=== PATIENT | female | born 1955 | race Caucasian/White ===

== ENCOUNTER 2023-07-31 17:25 | Observation (INO) | payer MEDICARE, SELFPAY ==
[2023-07-31] VITALS (11 sets, daily range): BP systolic 136–176; BP diastolic 73–99; PULSE 62–86; RESP 16–18; TEMP 36.8–37; O2SAT 92–99; BMI 37.5
--- NOTE | 2023-07-31 17:29 | PC.NURSE ---
Dinner tray ordered for pt
--- NOTE | 2023-07-31 17:37 | PC.NURSE ---
Spoke with Julee at [facility] to have them fax pt most recent visit
[2023-07-31 17:57] LABS: Microscopic, Urine URINE MICROSCOPIC (MICROSCOPIC)
[2023-07-31 18:03] LABS: Basophils # 0.1 K/mm3 (0-0.2); Basophils % 1.2 % (0.1-2.0); Eosinophils # 0.3 K/mm3 (0.0-0.4); Eosinophils % 6.2 % (0.1-12.0); Hematocrit 35.2 % (37.0-47.0); Lymphocytes # 1.8 K/mm3 (0.7-4.5); Lymphocytes % 33.9 % (10-50); Mean Corpuscular Hemoglobin 30.9 pg (27.0-31.2); Mean Corpuscular Volume 90.8 fl (81-99); Mean Platelet Volume 8.6 fl (7.4-10.4); Monocytes # 0.3 K/mm3 (0.1-1.0); Monocytes % 5.3 % (1.7-9.3); Neutrophils # 2.9 K/mm3 (1.8-7.8); Neutrophils % 53.4 % (37.0-80.0); Platelet Count 178 K/mm3 (142-424); Red Blood Count 3.88 M/mm3 (4.20-5.40); Red Cell Distribution Width 14.7 % (11.5-17.5); White Blood Count 5.4 K/mm3 (4.8-10.8)
[2023-07-31 18:06] LABS: Alanine Aminotransferase 36 U/L (12-78); Albumin/Globulin Ratio 1.1 (1.1-1.8); Alkaline Phosphatase 86 U/L (38-126); Anion Gap 10.8 mEq/L (5-15); Aspartate Amino Transferase 63 U/L (14-36); Bilirubin,Total 0.4 mg/dl (0.2-1.3); Blood Urea Nitrogen 18 mg/dl (7-17); Carbon Dioxide 30 mmol/L (22.0-30.0); Chloride 104 mmol/L (98-107); Creatinine Clearance Estimated 91 mL/min (50-200); Estimated Glomerular Filt Rate 55 ml/min (>60); GFR (African American) 67 ML/MIN (>60); Globulin 3.5 g/dL (1.3-3.2); Glucose 92 mg/dl (74-100); Potassium 3.8 mmoL/L (3.5-5.1); Sodium 141 mmol/L (136-145); Total Protein,Serum 7.5 g/dl (6.3-8.2)
[2023-07-31 18:17] LABS: Appearance,Urine CLEAR (Clear); Bilirubin,Urine Negative (Negative); Blood, Urine 1+ (Negative); Color,Urine YELLOW (Yellow); Glucose,Urine (UA) Negative (Negative); Ketones,Urine Negative (Negative); Leukocyte Esterase,Urine TRACE (Negative); Nitrate,Urine POSITIVE (Negative); Protein,Urine TRACE (Negative); Specific Gravity, Urine 1.025 (1.005-1.030); Urobilinogen,Urine 0.2 EU/dl (0.2)
--- NOTE | 2023-07-31 18:34 | PC.NURSE ---
Dr. Peña at [facility] for pt eval
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
--- NOTE | 2023-07-31 18:47 | PC.NURSE ---
Spoke with Julee at [facility] regarding medical records advised The chart is almost 200 pages advised they will attempt to send it again
--- NOTE | 2023-07-31 18:50 | PC.NURSE ---
attempted to obtain case ID from [facility].
--- NOTE | 2023-07-31 18:52 | PC.NURSE ---
Pt provided with [employer] chips and drink
[2023-07-31 18:56] LABS: RBC,Urine Occasional #/hpf (0-3)
[2023-07-31 18:57] LABS: Bacteria,Urine 4+ /lpf; Renal Epithelial Cells,Urine Occasional #/lpf (0)
--- NOTE | 2023-07-31 19:15 | PC.NURSE ---
spoke with Kaitlyn in Case Mangement who gave the number for [facility]. per initial report by Devin Reddy APRN they had tried calling a home center in [place], [facility], [facility], [facility]. Will attempt to call [place] [phone].
--- NOTE | 2023-07-31 19:22 | PC.NURSE ---
Mirella at [place] [phone] contacted and speaking with the patient at this time.
--- NOTE | 2023-07-31 19:38 | PC.NURSE ---
I rounded on the pt, she is sleeping at this time.
--- NOTE | 2023-07-31 19:41 | PC.NURSE ---
Pt on phone with [facility], states they told her she was out of their district.
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
--- NOTE | 2023-07-31 20:27 | PC.NURSE ---
Pt states she could return to her living conditions but she has a hard time ambulating and no one to help care for her. Dr Peña would like us to assess he ambulating ability. Yue Leung to bedside to assist and noticed her right leg to be very red and swollen. Will address with Dr Peña before ambulating
--- NOTE | 2023-07-31 21:37 | PC.NURSE ---
Pt ambulated to restroom, provided new brief for incontinence
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
--- NOTE | 2023-07-31 22:13 | PC.NURSE ---
I called and spoke with the malt house operator, Rustam RN, to request a bed for admission to the hospitalist.
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
[2023-07-31] MEDS: ENOXAPARIN 120MG/0.8ML SYRINGE 110 MG SQ (22:46)
[2023-07-31] MEDS: CEFDINIR 300MG CAPSULE 300 MG PO (22:47)
--- NOTE | 2023-07-31 23:02 | PC.NURSE ---
Paola WEST to call back for report
--- NOTE | 2023-07-31 23:27 | PC.NURSE ---
PT ARRIVED AT THIS TIME
[2023-07-31] MEDS: 0.9 % SODIUM CHLORIDE 1000ML 1,000 ML 50 ML IV (23:47)
[2023-08-01] VITALS: BP 154/73; PULSE 71; RESP 18; TEMP 36.8; O2SAT 94; BMI 38.0
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
[2023-08-01 04:00] VITALS: BP 143/70; PULSE 71; RESP 18; TEMP 36.6; O2SAT 95; BMI 38.3
--- NOTE | 2023-08-01 07:24 | HMH.PHAINT1 ---
Pharmacy Intervention Comments: Home med list verified with patient at bedside and with external pharmacy list.
[2023-08-01 08:00] VITALS: BP 139/82; PULSE 71; RESP 18; TEMP 36.8; O2SAT 95
[2023-08-01] MEDS: CEFTRIAXONE 1 GM 1 GM in 0.9 % SODIUM CHLORIDE 50 ML IV (09:29)
[2023-08-01] MEDS: FUROSEMIDE 40MG/4ML VIAL 40 MG IV (09:29)
[2023-08-01] MEDS: PRAMIPEXOLE 1MG TAB 1.5 MG PO ×2 (09:30→12:38)
[2023-08-01] MEDS: LEVOTHYROXINE 150MCG (0.15MG)TAB 150 MCG PO (09:30)
[2023-08-01] MEDS: DIVALPROEX 250MG (EXTENDED-RELEASE) TABLET 500 MG PO (09:30)
[2023-08-01] MEDS: BACLOFEN 10MG TABLET 10 MG PO ×2 (09:30→12:38)
[2023-08-01] MEDS: SERTRALINE 100MG TABLET 100 MG PO (09:33)
[2023-08-01] MEDS: ENOXAPARIN 120MG/0.8ML SYRINGE 110 MG SQ (09:34)
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
--- NOTE | 2023-08-01 16:15 | CARE MANAGER ---
Addendum entered by Breanne Kaye RN 08/01/23 16:16: [facility] transportation and contacted them for a ride. Original Note: Patient is being discharged and will need transportation home. She has no relatives or friends that can assist. She also does not have any money. [facility]
--- NOTE | 2023-08-01 16:25 | PC.NURSE ---
Meds to beds called and iv removed.
--- NOTE | 2023-08-01 22:40 | CA_ITS ---
FINAL REPORT TECHNIQUE: extremity venous duplex was performed with augmentation and compression. CLINICAL HISTORY: Swollen leg, redness, obesity COMPARISON: None FINDINGS: RIGHT LOWER EXTREMITY VENOUS DOPPLER: Proper flow is seen throughout the deep venous system. The study is somewhat limited secondary to the large amount of edema and tenderness in the right leg. There is no evidence of deep venous thrombosis. IMPRESSION: No evidence of deep venous thrombosis. Study slightly limited secondary to large amount of soft tissue edema and tenderness in the right leg. Reviewed, Interpreted and Dictated by Fabricio Crawford MD Transcribed by Katie Read Authenticated and [facility]
--- NOTE | 2023-08-02 11:29 | CARE MANAGER ---
Attempted to contact patient related to discharge from hospital, but no phone number on file. BRETT Syed
== END 2023-08-01 18:00 | disposition home or self-care (01) ==
LOC: ER 18:38 → 2ND 22:25
PROVIDERS: Admitting Provider Internal Medicine Adolescent Medicine; Emergency Provider Emergency Medicine; PCP Family Medicine; Visit Provider Internal Medicine Adolescent Medicine
DX: N39.0 Urinary tract infection, site not specified (principal); Z59.19 Other inadequate housing; Z91.89 Other specified personal risk factors, not elsewhere classified; E03.8 Other specified hypothyroidism; F20.9 Schizophrenia, unspecified; M79.89 Other specified soft tissue disorders
CPT/HCPCS: 80053; 81001; 85025; 87086; 93971; 97163; 97165; 99285; G0378; J0696

== ENCOUNTER 2023-11-09 21:03 | Emergency (ER) | payer MEDICARE, SELFPAY ==
[2023-11-09 21:03] VITALS: BP 91/53; PULSE 78; RESP 16; TEMP 36.7; O2SAT 93; BMI 32.3
--- NOTE | 2023-11-09 21:10 | ECG_ITS ---
APPROVED REPORT Exam: Resting ECG HR:76 bpm ECG Measurements Heart Rate 76 AXES HI 158 P 67 QRSd 90 QRS 93 QT 418 T 76 QTc 449 Conclusion SINUS RHYTHM BORDERLINE RIGHT AXIS DEVIATION [QRS AXIS > 90] BORDERLINE ECG Electronically signed by : DIANNE COOLEY, 11/10/2023 06:07:39
[2023-11-09 21:20] LABS: Chloride 113 mmol/L (98-107); Sodium 144 mmol/L (136-145)
[2023-11-09 21:21] LABS: Potassium 4.1 mmoL/L (3.5-5.1)
[2023-11-09 21:23] LABS: Alanine Aminotransferase 36 U/L (12-78); Albumin Level 4.1 g/dl (3.5-5.0); Albumin/Globulin Ratio 1.1 (1.1-1.8); Alkaline Phosphatase 84 U/L (38-126); Anion Gap 10.1 mEq/L (5-15); Aspartate Amino Transferase 43 U/L (14-36); Bilirubin,Total 0.5 mg/dl (0.2-1.3); Blood Urea Nitrogen 30 mg/dl (7-17); Calcium 9.5 mg/dl (8.4-10.2); Carbon Dioxide 25 mmol/L (22.0-30.0); Creatinine Clearance Estimated 63 mL/min (50-200); Estimated Glomerular Filt Rate 45 ml/min (>60); GFR (African American) 54 ML/MIN (>60); Globulin 3.9 g/dL (1.3-3.2); Glucose 120 mg/dl (74-100)
--- NOTE | 2023-11-09 21:25 | XR_ITS ---
PROCEDURE INFORMATION: Exam: XR Right Knee Exam date and time: 11/09/2023 9:37 PM Age: 67 years old Clinical indication: Pain; Knee; Right; Additional info: Fall, right hip and knee pain TECHNIQUE: Imaging protocol: Radiologic exam of the right knee. Views: 3 views. COMPARISON: CR XR FEMUR RT 2V 11/09/2023 9:37 PM FINDINGS: Bones/joints: There is advanced tricompartmental osteoarthritis of the knee with loss of joint space, subchondral sclerosis, and productive changes. The osseous structures are intact, with no signs of acute fracture, dislocation, or malalignment. There is no evidence of abnormal bone density or destructive lesions. Soft tissues: The soft tissues appear within normal limits. IMPRESSION: At the time of imaging, the study shows no acute osseous abnormalities but does reveal signs of advanced tricompartmental osteoarthritis.
--- NOTE | 2023-11-09 21:25 | CT_ITS ---
PROCEDURE INFORMATION: Exam: CT Head Without Contrast Exam date and time: 11/09/2023 9:37 PM Age: 67 years old Clinical indication: Injury or trauma; Fall; Additional info: Fall, no loc TECHNIQUE: Imaging protocol: Computed tomography of the head without contrast. Radiation optimization: All CT scans at this facility use at least one of these dose optimization techniques: automated exposure control; mA and/or kV adjustment per patient size (includes targeted exams where dose is matched to clinical indication); or iterative reconstruction. COMPARISON: No relevant prior studies available. FINDINGS: Brain: No evidence for intracranial hemorrhage, mass lesions or acute stroke. Intracranial vascular calcifications. Cerebral ventricles: Ventricles and sulci appear normal. Pituitary gland and sella: Negative Paranasal sinuses: Visualized sinuses are unremarkable. No fluid levels. Mastoid air cells: Visualized mastoid air cells are well aerated. Orbital cavities: Bilateral cataract extractions. Parotid and submandibular glands: Negative Bones: Unremarkable. No acute fracture. Soft tissues: Unremarkable. Vasculature: Negative. IMPRESSION: 1. No evidence for intracranial hemorrhage, mass lesions or acute stroke. 2. Intracranial vascular calcifications. 3. Ventricles and sulci appear normal.
--- NOTE | 2023-11-09 21:25 | XR_ITS ---
PROCEDURE INFORMATION: Exam: XR Right Femur Exam date and time: 11/09/2023 9:37 PM Age: 67 years old Clinical indication: Pain; Thigh; Right; Additional info: All, right hip and knee pain TECHNIQUE: Imaging protocol: Radiologic exam of the right femur. Views: 2 views. COMPARISON: CR XR HIP RT 2-3V W/PELVIS 11/09/2023 9:37 PM FINDINGS: Bones/joints: Partially visualized advanced degenerative disease of the hip and knee. The osseous structures are intact, with no signs of acute fracture, dislocation, or malalignment. Age-related degenerative changes are observed. There is no evidence of abnormal bone density or destructive lesions. Soft tissues: The soft tissues appear within normal limits. IMPRESSION: At the time of imaging, the study shows no acute osseous abnormalities but does reveal signs of age-related degenerative changes.
--- NOTE | 2023-11-09 21:25 | CT_ITS ---
PROCEDURE INFORMATION: Exam: CT Cervical Spine Without Contrast Exam date and time: 11/09/2023 9:39 PM Age: 67 years old Clinical indication: Injury or trauma; Fall; Additional info: Fall, no loc TECHNIQUE: Imaging protocol: Computed tomography of the cervical spine without contrast. Radiation optimization: All CT scans at this facility use at least one of these dose optimization techniques: automated exposure control; mA and/or kV adjustment per patient size (includes targeted exams where dose is matched to clinical indication); or iterative reconstruction. COMPARISON: CT HEAD/BRAIN WO CON 11/09/2023 9:37 PM FINDINGS: Bones: Moderate dorsal kyphosis. No fracture or bone destruction. Proliferative changes around the dens the predental space narrowing consistent with arthritis. Extensive ventral osteophytic spurring at C4-C5, C5-C6, C6-C7 levels. Degenerative disc space narrowing at C4-C5 with posterior projecting disc osteophyte complex. [id number] multilevel facet arthropathy. Moderate right foraminal narrowing C4-C5 due to uncovertebral joint hypertrophy right parasagittal image 1002/53. Lungs: Lung apices are normal. Soft tissues: Unremarkable. IMPRESSION: 1. Moderate dorsal kyphosis. 2. No fracture or bone destruction. 3. Proliferative changes around the dens and predental space narrowing consistent with arthritis. 4. Extensive ventral osteophytic spurring at C4-C5, C5-C6, C6-C7 levels. 5. Degenerative disc space narrowing at C4-C5 with posterior projecting disc osteophyte complex. 6. [id number] multilevel facet arthropathy. 7. Moderate right foraminal narrowing C4-C5 due to uncovertebral joint hypertrophy right parasagittal image 1002/53.
--- NOTE | 2023-11-09 21:25 | XR_ITS ---
PROCEDURE INFORMATION: Exam: XR Right Humerus Exam date and time: 11/09/2023 9:37 PM Age: 67 years old Clinical indication: Pain; Upper arm; Right; Additional info: Fall, R shoudler and elbow pain TECHNIQUE: Imaging protocol: Radiologic exam of the right humerus. Views: 2 or more views. COMPARISON: CR XR SHOULDER RT MIN 2V 11/09/2023 9:37 PM FINDINGS: Bones/joints: The osseous structures are intact, with no signs of acute fracture, dislocation, or malalignment. Age-related degenerative changes are observed. There is no evidence of abnormal bone density or destructive lesions. Soft tissues: The soft tissues appear within normal limits. IMPRESSION: At the time of imaging, the study shows no acute osseous abnormalities but does reveal signs of age-related degenerative changes.
--- NOTE | 2023-11-09 21:25 | XR_ITS ---
PROCEDURE INFORMATION: Exam: XR Right Elbow Exam date and time: 11/09/2023 9:37 PM Age: 67 years old Clinical indication: Pain; Elbow; Right; Additional info: Fall, R elbow pain laterally TECHNIQUE: Imaging protocol: Radiologic exam of the right elbow. Views: 1 or 2 views. COMPARISON: CR XR FOREARM RT 2V 11/09/2023 9:37 PM FINDINGS: Bones/joints: There is small osseous fragmentation of the lateral humeral condyle which could be on the basis of degenerative disease or reflect a small avulsion injury. Soft tissues: Normal. IMPRESSION: There is small osseous fragmentation of the lateral humeral condyle which could be on the basis of degenerative disease or reflect a small avulsion injury.
--- NOTE | 2023-11-09 21:25 | XR_ITS ---
PROCEDURE INFORMATION: Exam: XR Right Shoulder Exam date and time: 11/09/2023 9:37 PM Age: 67 years old Clinical indication: Pain; Shoulder; Right; Additional info: Fall, R shoulder and elbow pain TECHNIQUE: Imaging protocol: Radiologic exam of the right shoulder. Views: 2 or more views. COMPARISON: CR XR HUMERUS RT 11/09/2023 9:37 PM FINDINGS: Bones/joints: The osseous structures are intact, with no signs of acute fracture, dislocation, or malalignment. Age-related degenerative changes are observed. There is no evidence of abnormal bone density or destructive lesions. Soft tissues: The soft tissues appear within normal limits. IMPRESSION: At the time of imaging, the study shows no acute osseous abnormalities but does reveal signs of age-related degenerative changes.
--- NOTE | 2023-11-09 21:25 | XR_ITS ---
PROCEDURE INFORMATION: Exam: XR Right Hip Exam date and time: 11/09/2023 9:37 PM Age: 67 years old Clinical indication: Hip pain; Right hip; Additional info: Fall, R hip and knee pain TECHNIQUE: Imaging protocol: Radiologic exam of the right hip. Views: 2 or 3 views hip with pelvis when performed. COMPARISON: CR XR FEMUR RT 2V 11/09/2023 9:37 PM FINDINGS: Bones/joints: There is mild osteoarthritis of the hips with joint space narrowing, productive changes, and subchondral sclerosis. There are partially visualized degenerative changes of the sacroiliac joints and lumbar spine as well as some degenerative disease of the pubic symphysis. The osseous structures are intact, with no signs of acute fracture, dislocation, or malalignment. Age-related degenerative changes are observed. There is no evidence of abnormal bone density or destructive lesions. Soft tissues: The soft tissues appear within normal limits. Other findings: The examination is limited by under penetration. IMPRESSION: At the time of imaging, the study shows no acute osseous abnormalities but does reveal signs of age-related degenerative changes.
--- NOTE | 2023-11-09 21:25 | XR_ITS ---
PROCEDURE INFORMATION: Exam: XR Right Forearm Exam date and time: 11/09/2023 9:37 PM Age: 67 years old Clinical indication: Pain; Lower or forearm; Right; Additional info: Fall, prox forearm pain TECHNIQUE: Imaging protocol: Radiologic exam of the right forearm. Views: 2 views. COMPARISON: CR XR ELBOW RT 2V 11/09/2023 9:37 PM FINDINGS: Bones/joints: The wrist and elbow are poorly evaluated due to positioning. No evidence for fracture of the mid radius or ulna. Soft tissues: Normal. IMPRESSION: 1. The wrist and elbow are poorly evaluated due to positioning. 2. No evidence for fracture of the mid radius or ulna.
[2023-11-09 21:27] LABS: Basophils # 0.1 K/mm3 (0-0.2); Basophils % 1.3 % (0.1-2.0); Eosinophils # 0.3 K/mm3 (0.0-0.4); Hematocrit 33.9 % (37.0-47.0); Hemoglobin 11.4 g/dL (12.2-16.2); Lymphocytes # 2.2 K/mm3 (0.7-4.5); Lymphocytes % 36.4 % (10-50); Mean Corpuscular HGB Conc 33.6 g/dL (31.8-35.4); Mean Corpuscular Hemoglobin 31.1 pg (27.0-31.2); Mean Corpuscular Volume 92.8 fl (81-99); Mean Platelet Volume 9.5 fl (7.4-10.4); Monocytes # 0.4 K/mm3 (0.1-1.0); Monocytes % 7.4 % (1.7-9.3); Neutrophils % 49.9 % (37.0-80.0); Platelet Count 230 K/mm3 (142-424); Red Blood Count 3.65 M/mm3 (4.20-5.40); Red Cell Distribution Width 15.5 % (11.5-17.5); White Blood Count 5.9 K/mm3 (4.8-10.8)
--- NOTE | 2023-11-09 21:33 | ED_ITS ---
Discharge Plan Disposition Patient Disposition: Home, Self-Care Chief Complaint: Fall Prescriptions Prescriptions: No Action atorvastatin 40 mg tablet 40 mg PO HS gabapentin 600 mg tablet 1,200 mg PO TID sertraline 100 mg tablet 100 mg PO DAILY baclofen 10 mg tablet 10 mg PO TID divalproex 500 mg Tablet Extended Release 24 Hr 500 mg PO HS levothyroxine 150 mcg tablet 150 mcg PO AM omeprazole 20 mg capsule,delayed release(DR/EC) 20 mg PO BID pramipexole [Mirapex] 1.5 mg Tablet 1.5 mg PO TID lidocaine 4 % Adhesive Patch,Medicated 1 patch TOPICAL DAILY olanzapine 10 mg tablet 10 mg PO BID Patient Comments: TAKE 1 TABLET BY MOUTH ONCE DAILY Referrals Follow up/Referrals: Provider,Referral, MD [Primary Care Provider] - See instructions Clinical Impressions Clinical Impression: Polypharmacy, Accident due to mechanical fall without injury, Arm pain, right, Acute pain of right lower extremity Discharge ED Provider: Bentley Bejarano General Adult HPI General Chief complaint: Fall Stated complaint: Fall Time Seen by Provider: 11/09/23 21:09 Mode of Arrival: EMS Source of Information: Patient Limitations: No Limitations Description of Symptoms (Recalled from ER Triage Doc. by RN): pt was an unwitnessed fall at [facility]. pt c/o rt elbow pain and weakness. History of Present Illness HPI narrative: Please note that above description of symptoms, in this electronic medical record under categorization of recalled from ER triage doctor by RN are reflective of an initial nursing assessment, however, is not reflective of my full history and physical exam that was personally taken and clarified. Consequentially, this preceding description of symptoms, which may include the patient's categorized chief complaint in the EMR, do not reflect my personal clinical impression, and the ultimate description of history of present illness and patient stated complaints should be deferred to this section of the note. Unless stated otherwise or congruent with this section of the note, additional signs, symptoms, or incongruence should be interpreted as inaccurate with my clinical impression. Related Data Home Medications Medication Instructions Recorded Confirmed atorvastatin 40 mg tablet 40 mg PO HS 08/01/23 11/09/23 baclofen 10 mg tablet 10 mg PO TID 08/01/23 11/09/23 divalproex 500 mg tablet,extended 500 mg PO HS 08/01/23 11/09/23 release 24 hr gabapentin 600 mg tablet 1,200 mg PO TID 08/01/23 11/09/23 levothyroxine 150 mcg tablet 150 mcg PO AM 08/01/23 11/09/23 omeprazole 20 mg capsule,delayed 20 mg PO BID 08/01/23 11/09/23 release pramipexole 1.5 mg tablet (Mirapex) 1.5 mg PO TID 08/01/23 11/09/23 sertraline 100 mg tablet 100 mg PO DAILY 08/01/23 11/09/23 lidocaine 4 % topical patch 1 patch topical DAILY 11/09/23 11/09/23 olanzapine 10 mg tablet 10 mg PO BID 11/09/23 11/09/23 Allergies Allergy/AdvReac Type Severity Reaction Status Date / Time haloperidol [From Haldol] Allergy Verified 07/31/23 17:39 quetiapine [From Seroquel] Allergy Verified 07/31/23 17:39 [facility] Disclaimer: The information contained in this section may have been updated after the patient was seen, as this information can be updated by other users. Social History (Updated 08/01/23 @ 00:16 by Linda Yarbrough RN) Smoking Status: Never smoker alcohol intake: never current occupational status: disabled and other Travel in the last 8 weeks: None ROS Obtained: Yes All systems reviewed & no additional complaints except as documented Physical Exam General General appearance: alert and in no apparent distress Head Head exam: atraumatic and normocephalic Eye Eye exam: Present normal appearance, PERRL and EOMI ENT ENT exam: Present mucous membranes moist Neck Neck exam: Present normal inspection, full ROM and trachea midline Respiratory Respiratory exam: Absent respiratory distress, wheezes, stridor, accessory muscle use or prolonged expiratory phase Cardiovascular Cardiovascular exam: Present normal rhythm Abdominal Exam Abdominal exam: Present soft; Absent distention, tenderness, guarding, rebound or rigidity Extremities Exam Extremities exam: Absent edema Neurological Exam Neurological exam: Present alert, oriented X3, CN II-XII intact and normal gait; Absent motor sensory deficit Skin Skin exam: Present warm and dry; Absent diaphoresis or erythema Medical Decision Making Medical Records Medical records reviewed: Yes I reviewed the patient's medical records. [place] Inquiry Pt receiving controlled substance: No [place] was queried for this patient: No Vital Signs: 11/09/23 21:03 11/09/23 22:00 11/09/23 22:30 Temperature 98.0 F Temperature Source Oral Pulse Rate 67 73 Pulse Rate [Right] 78 Respiratory Rate 16 16 15 Blood Pressure 105/40 L 97/61 L Blood Pressure [Right Arm] 91/53 L Blood Pressure Mean [Right Arm] 65 02 Sat by Pulse Oximetry 93 L 93 L 92 L Oxygen Delivery Method Room Air Room Air Lab Data Lab Results 11/09/23 21:05: WBC 5.9, RBC 3.65 L, Hgb 11.4 L, Hct 33.9 L, MCV 92.8, MCH 31.1, MCHC 33.6, RDW 15.5, Plt Count 230, MPV 9.5, Neut % (Auto) 49.9, Lymph % (Auto) 36.4, [place] % (Auto) 7.4, Eos % (Auto) 5.0, Baso % (Auto) 1.3, Neut # (Auto) 3.0, Lymph # (Auto) 2.2, [place] # (Auto) 0.4, Eos # (Auto) 0.3, Baso # (Auto) 0.1, Sodium 144, Potassium 4.1, Chloride 113 H, Carbon Dioxide 25, Anion Gap 10.1, B UN 30 H, Creatinine 1.20 H, Estimated Creat Clear 63, Estimated GFR 45 L, Est GFR ( Amer) 54 L, Glucose 120 H, Calcium 9.5, Total Bilirubin 0.5, AST 43 H, ALT 36, Alkaline Phosphatase 84, Troponin I < 0.01, NT-Pro-B Natriuret Pep 89.0, Total Protein 8.0, Albumin 4.1, Globulin 3.9 H, Albumin/Globulin Ratio 1.1 11/09/23 21:05 11/09/23 21:05 Orders (Tests/Meds): ED MEDICATIONS Discontinued Medications Generic Name Dose Route Start Last Admin Trade Name Freq PRN Reason Stop Dose Admin Lactated Ringer's 1,000 mls @ 999 mls/hr 11/09/23 21:28 11/09/23 21:58 Lactated Ringer's 1000 Ml Bag IV 11/09/23 22:28 999 mls/hr .[id number] ONE Administration ORDERS Category Date Time Status CT cervical spine wo con Stat Cat Scan 11/09/23 21:[address] head/brain wo con Stat Cat Scan 11/09/23 21:25 Taken Elbow XR right 2 views [XR elbow RT 2V] Stat Exams 11/09/23 21:25 Completed Femur XR right 2 views [XR femur RT 2V] Stat Exams 11/09/23 21:25 Completed Forearm XR right 2 views [XR forearm RT 2V] Stat Exams 11/09/23 21:25 Completed Hip XR right minimum 2 views [XR hip RT 2-3V w/pelvis] Exams 11/09/23 21:25 Completed Stat Humerus XR right [XR humerus RT] Stat Exams 11/09/23 21:25 Completed Knee XR right 3 views [XR knee RT 3V] Stat Exams 11/09/23 21:25 Completed Shoulder XR right miminum 2 views [XR shoulder RT min Exams 11/09/23 21:25 Completed 2V] Stat CBC w/Auto Diff [Complete Blood Count Auto Diff] Stat Lab 11/09/23 21:05 Completed CMP [Comprehensive Metabolic Panel] Stat Lab 11/09/23 21:05 Completed NT Pro Brain Natriuretic Pep. Stat Lab 11/09/23 21:05 Completed Trop I [Troponin I] Stat Lab 11/09/23 21:05 Completed Troponin I Q3H Lab 11/10/23 00:15 Ordered Troponin I Q3H Lab 11/10/23 03:15 Ordered UA [Urinalysis and Microscopic] Stat Lab 11/09/23 21:11 Ordered UDS [Drug Screen,Urine] Stat Lab 11/09/23 21:11 Ordered Medical Decision Narrative: 67-year-old female history of multiple sclerosis, hyper, hyperlipidemia, schizophrenia, schizoaffective disorder presenting with fall. Patient states that she was transferring from her bed into her wheelchair when she fell onto her right side. Struck her head, no loss of consciousness. Having pain right shoulder through elbow, right hip with her knee. No shortness of breath, chest pain, shortness of breath. No head or neck pain, no neurologic deficits. History was obtained via conversation with patient and EMS. On arrival, patient hemodynamically stable, alert, oriented x4, appropriate, GCS 14 (patient tired appearing, opening eyes to voice and conversing normally), moving all extremities spontaneously, pupils equal and reactive to light. Full physical exam performed and significant for well-appearing chronically ill woman in no acute distress. Dry mucous membranes. Pupils are 3 mm and reactive bilaterally. EOMs are intact, NIHSS 0. No trauma to the head or neck. No chest tenderness. Patient does have tenderness right upper extremity at shoulder, distal humerus near elbow, and elbow. Neurovascularly intact and range of motion intact. Patient also has tenderness lateral aspect of right hip and anterior right knee associated skin abrasion. No obvious deformity also neurologically intact. Differential includes intracranial bleed, cervical spine injury, fracture, sprain, strain, mechanical fall, metabolic abnormality, polypharmacy, among others. Patient was given fluid bolus for symptomatic management and correction of underlying abnormalities. Workup independently interpreted and demonstrated nonactionable hematologic workup including CBC, cardiac labs.chemistry with mild dehydration, she was given a liter fluids for this. CT head and cervical spine independently interpreted and without acute intracranial abnormality or cervical spine injury. Patient's right upper and right lower extremities were imaged, no evidence of acute bony abnormality. See radiology read for full review of final results. Independent interpretation of EKG shows sinus rhythm 76 beats a minute no ST or T wave changes concerning for acute ischemia. NH, QRS, QT intervals within normal limits. Borderline right axis deviation, but otherwise no abnormalities. Heart score not applicable here due to mechanical fall. After fluids, patient's blood pressure improved, remains asymptomatic. Given patient presentation, workup, history, this most likely represents mechanical fall in the setting of polypharmacy. Because patient at baseline without signs or symptoms of clinical decompensation, deemed appropriate for discharge. Results were relayed to patient who voiced understanding and were agreeable to outpatient management and follow up. I discussed my clinical impression with patient and answered all questions. At this time, the evidence for any other entities in the differential is insufficient to warrant any further testing or ED observation. This was explained as well. Advisory was given that persistent or worsening symptoms require further evaluation. I confirmed the understanding of this discussion. Critical Care Critical Care Time Critical Care Time: No
[2023-11-09 21:37] LABS: Troponin I < 0.01 ng/ml (0.00-0.034)
[2023-11-09] MEDS: LACTATED RINGERS 1000ML 1,000 ML 999 ML IV (21:58)
[2023-11-09 22:00] VITALS: BP 105/40; PULSE 67; RESP 16; O2SAT 93
[2023-11-09 22:30] VITALS: BP 97/61; PULSE 73; RESP 15; O2SAT 92
[2023-11-09 23:05] VITALS: BP 107/81; PULSE 73; RESP 16; TEMP 36.7; O2SAT 94
== END 2023-11-09 23:05 | disposition home or self-care (01) ==
PROVIDERS: Emergency Provider Emergency Medicine
DX: M79.601 Pain in right arm (principal); M79.604 Pain in right leg; Z79.899 Other long term (current) drug therapy; W06.XXXA Fall from bed, initial encounter; F20.9 Schizophrenia, unspecified
CPT/HCPCS: 70450; 72125; 73030; 73060; 73070; 73090; 73502; 73552; 73562; 80053; 83880; 84484; 85025; 93005; 96360; 99285

== ENCOUNTER 2023-11-23 13:43 | Emergency (ER) | payer MEDICARE, SELFPAY ==
[2023-11-23 13:42] VITALS: BP 125/84; PULSE 70; RESP 17; TEMP 36.7; O2SAT 98; BMI 34.4
--- NOTE | 2023-11-23 14:02 | HMH.EDGENADL ---
Discharge Plan Disposition Patient Disposition: Home, Self-Care Condition: Fair Prescriptions Prescriptions: No Action atorvastatin 40 mg tablet 40 mg PO HS gabapentin 600 mg tablet 1,200 mg PO TID sertraline 100 mg tablet 100 mg PO DAILY baclofen 10 mg tablet 10 mg PO TID divalproex 500 mg Tablet Extended Release 24 Hr 500 mg PO HS levothyroxine 150 mcg tablet 150 mcg PO AM omeprazole 20 mg capsule,delayed release(DR/EC) 20 mg PO BID pramipexole [Mirapex] 1.5 mg Tablet 1.5 mg PO TID lidocaine 4 % Adhesive Patch,Medicated 1 patch TOPICAL DAILY olanzapine 10 mg tablet 10 mg PO BID Patient Comments: TAKE 1 TABLET BY MOUTH ONCE DAILY Referrals Follow up/Referrals: Rashaad Lozada MD [Staff Physician] - See instructions Provider,MD Sofi [Primary Care Provider] - See instructions Activity Restrictions/Add. Instructions Additional Instructions/Restrictions: I have referred you to cardiology and please call and make an appointment tomorrow. Follow-up with your PCP as needed. Clinical Impressions Clinical Impression: Cellulitis of both lower extremities, Lymphedema Discharge ED Provider: Bentley Bejarano General Adult HPI <SILVIA Rincon - Last Filed: 11/23/23 15:51> General Chief complaint: Extremity Problem,Nontraumatic Stated complaint: Edema Extremity Time Seen by Provider: 11/23/23 13:59 Mode of Arrival: EMS Source of Information: Patient and EMS Limitations: No Limitations Description of Symptoms (Recalled from ER Triage Doc. by RN): r leg swelling. History of Present Illness HPI narrative: Patient presents for evaluation of bilateral lower extremity swelling, right greater than left, and right lower extremity pain and redness. Patient reports that she was recently hospitalized for bilateral lower extremity edema at [facility] in [place] however patient is a poor historian and cannot give me details such as date and time or month that she was admitted but she states it was this year. Patient denies trauma chest pain shortness of breath fever chills hemoptysis hematochezia melena nausea vomit diarrhea. Related Data Home Medications Medication Instructions Recorded Confirmed atorvastatin 40 mg tablet 40 mg PO HS 08/01/23 11/09/23 baclofen 10 mg tablet 10 mg PO TID 08/01/23 11/09/23 divalproex 500 mg tablet,extended 500 mg PO HS 08/01/23 11/09/23 release 24 hr gabapentin 600 mg tablet 1,200 mg PO TID 08/01/23 11/09/23 levothyroxine 150 mcg tablet 150 mcg PO AM 08/01/23 11/09/23 omeprazole 20 mg capsule,delayed 20 mg PO BID 08/01/23 11/09/23 release pramipexole 1.5 mg tablet (Mirapex) 1.5 mg PO TID 08/01/23 11/09/23 sertraline 100 mg tablet 100 mg PO DAILY 08/01/23 11/09/23 lidocaine 4 % topical patch 1 patch topical DAILY 11/09/23 11/09/23 olanzapine 10 mg tablet 10 mg PO BID 11/09/23 11/09/23 Allergies Allergy/AdvReac Type Severity Reaction Status Date / Time haloperidol [From Haldol] Allergy Verified 07/31/23 17:39 quetiapine [From Seroquel] Allergy Verified 07/31/23 17:39 [facility] <SILVIA Rincon - Last Filed: 11/23/23 15:51> [facility] Disclaimer: The information contained in this section may have been updated after the patient was seen, as this information can be updated by other users. Social History (Updated 08/01/23 @ 00:16 by Linda Yarbrough RN) Smoking Status: Never smoker alcohol intake: never current occupational status: disabled and other Travel in the last 8 weeks: None <SILVIA Rincon - Last Filed: 11/23/23 15:51> ROS Obtained: Yes Systems reviewed as appropriate & no additional complaints except as documented Physical Exam <SILVIA Rincon Last Filed: 11/23/23 15:51> General General appearance: alert and in no apparent distress Respiratory Respiratory exam: Present normal lung sounds bilaterally; Absent respiratory distress Cardiovascular Cardiovascular exam: Present regular rate, normal rhythm and normal heart sounds Abdominal Exam Abdominal exam: Present soft (Central obesity) and normal bowel sounds; Absent tenderness, guarding, rebound or rigidity Extremities Exam Extremities exam: Present normal inspection (Bilateral upper extremities), full ROM, tenderness (Bilateral lower extremities, right greater than left), edema (Bilateral 3+ pitting edema however right lower extremity is larger than left) and calf tenderness (Right lower extremity only) Back Exam Back exam: Present normal inspection and full ROM Neurological Exam Neurological exam: Present alert, oriented X3 and CN II-XII intact Psychiatric Psychiatric exam: Present normal affect and normal mood Skin Skin exam: Present warm and dry; Absent normal color Other Other exam information: Patient has erythema over the right lower extremity from the junction of the proximal and middle thirds to the ankle including the foot and to a lesser extent has erythema of the anterior portion of the left lower extremity from the junction of the middle and distal thirds but anteriorly only. The right lower extremity erythema is circumferential. She is neurovascular intact distally and both bilateral extremities. Medical Decision Making <SILVIA Rincon - Last Filed: 11/23/23 15:51> Medical Records Medical records reviewed: Yes I reviewed the patient's medical records. Chucho Inquiry Pt receiving controlled substance: No Vital Signs: 11/23/23 13:42 11/23/23 14:30 11/23/23 16:06 Temperature 98.1 F 98.4 F Temperature Source Oral Oral Pulse Rate 65 65 Pulse Rate [Right] 70 Respiratory Rate 17 18 Blood Pressure 137/88 137/88 Blood Pressure [Right Arm] 125/84 Blood Pressure Mean 101 Blood Pressure Mean [Right Arm] 97 Blood Pressure Source [Right Arm] Automatic Cuff 02 Sat by Pulse Oximetry 98 97 Oxygen Delivery Method Room Air Room Air Room Air Lab Data Lab results reviewed: Yes I reviewed the patient's lab results. Lab Results 11/23/23 14:45: WBC 4.8, RBC 3.95 L, Hgb 11.9 L, Hct 36.5 L, MCV 92.4, MCH 30.1, MCHC 32.6, RDW 15.1, Plt Count 165, MPV 9.0, Neut % (Auto) 52.0, Lymph % (Auto) 36.9, [place] % (Auto) 6.4, Eos % (Auto) 3.7, Baso % (Auto) 1.0, Neut # (Auto) 2.5, Lymph # (Auto) 1.8, [place] # (Auto) 0.3, Eos # (Auto) 0.2, Baso # (Auto) 0.1, ESR 50 H, PT 10.8, INR 1.00, D-Dimer 0.30, Sodium 142, Potassium 4.2, Chloride 107, Carbon Dioxide 29, Anion Gap 10.2, BUN 21 H, Creatinine 1.10 H, Estimated Creat Clear 76, Estimated GFR 49 L, Est GFR ( Amer) 60, Glucose 93, Calcium 9.7, Total Bilirubin 0.2, AST 38 H, ALT 28, Alkaline Phosphatase 89, C-Reactive Protein 1.7, NT-Pro-B Natriuret Pep 53.5, Total Protein 7.6, Albumin 3.9, Globulin 3.7 H, Albumin/Globulin Ratio 1.1, Procalcitonin 0.032 11/23/23 14:45 11/23/23 14:45 Orders (Tests/Meds): ED MEDICATIONS Discontinued Medications Generic Name Dose Route Start Last Admin Trade Name Freq PRN Reason Stop Dose Admin Acetaminophen 1,000 mg 11/23/23 14:08 11/23/23 14:57 Acetaminophen 1,000mg/100ml Vial IV 11/23/23 14:09 1,000 mg ONCE ONE Administration Dalbavancin 1,500 mg/ Dextrose 250 mls @ 500 mls/hr 11/23/23 14:45 11/23/23 15:25 IV 11/23/23 14:46 500 mls/hr ONCE ONE Administration Ketorolac Tromethamine 15 mg 11/23/23 14:08 11/23/23 14:57 Ketorolac 30mg/Ml Vial IV 11/23/23 14:09 15 mg ONCE ONE Administration ORDERS Category Date Time Status BNP [NT Pro Brain Natriuretic Pep.] Stat Lab 11/23/23 14:45 Completed CRP [C-Reactive Protein] Stat Lab 11/23/23 14:45 Completed Complete Blood Count Auto Diff Stat Lab 11/23/23 14:45 Completed Comprehensive Metabolic Panel Routine Lab 11/23/23 14:45 Completed D-Dimer Stat Lab 11/23/23 14:45 Completed ESR [Erythrocyte Sedimentation Rate] Stat Lab 11/23/23 14:45 Completed Procalcitonin Stat Lab 11/23/23 14:45 Completed Prothrombin Time INR Stat Lab 11/23/23 14:45 Completed CA venous doppler LE BI Routine Y 11/23/23 14:08 Completed Medical Decision Narrative: In summary patient is a 67-year-old female who presents to the emergency department for evaluation of edema pain and swelling of the bilateral lower extremities, right greater than left. Patient has past medical history of multiple sclerosis, hyperlipidemia, schizophrenia, schizoaffective disorder morbid obesity hypothyroidism and history of substance abuse. [facility] Patient is hemodynamically stable upon arrival, afebrile. Physical exam is remarkable for bilateral 3+ pitting edema of the lower extremities, right greater than left with bilateral lower extremity erythema again right greater than left. Patient is tender to palpation posteriorly in the right lower extremity but not in the left. Differential diagnosis includes cellulitis versus DVT versus abscess etc. Initial workup will be conducted with hematologic labs venous Doppler. Initial interventions include Toradol and Tylenol. Initial workup reviewed by me shows that her hematologic labs are nonactionable including a negative D-dimer screen normal white count no shift. Ultrasound shows no thrombus but does show soft tissue cellulitis. Upon repeat evaluation patient had acceptable resolution of symptoms. Given this patient given Dalvance prior to discharge. Given that we have no cardiovascular evaluation will refer to cardiology for review as an outpatient. <Bentley Bejarano MD - Last Filed: 11/25/23 07:16> Vital Signs: 11/23/23 13:42 11/23/23 14:30 11/23/23 16:06 Temperature 98.1 F 98.4 F Temperature Source Oral Oral Pulse Rate 65 65 Pulse Rate [Right] 70 Respiratory Rate 17 18 Blood Pressure 137/88 137/88 Blood Pressure [Right Arm] 125/84 Blood Pressure Mean 101 Blood Pressure Mean [Right Arm] 97 Blood Pressure Source [Right Arm] Automatic Cuff 02 Sat by Pulse Oximetry 98 97 Oxygen Delivery Method Room Air Room Air Room Air Lab Data Lab Results 11/23/23 14:45: WBC 4.8, RBC 3.95 L, Hgb 11.9 L, Hct 36.5 L, MCV 92.4, MCH 30.1, MCHC 32.6, RDW 15.1, Plt Count 165, MPV 9.0, Neut % (Auto) 52.0, Lymph % (Auto) 36.9, [place] % (Auto) 6.4, Eos % (Auto) 3.7, Baso % (Auto) 1.0, Neut # (Auto) 2.5, Lymph # (Auto) 1.8, [place] # (Auto) 0.3, Eos # (Auto) 0.2, Baso # (Auto) 0.1, ESR 50 H, PT 10.8, INR 1.00, D-Dimer 0.30, Sodium 142, Potassium 4.2, Chloride 107, Carbon Dioxide 29, Anion Gap 10.2, BUN 21 H, Creatinine 1.10 H, Estimated Creat Clear 76, Estimated GFR 49 L, Est GFR ( Amer) 60, Glucose 93, Calcium 9.7, Total Bilirubin 0.2, AST 38 H, ALT 28, Alkaline Phosphatase 89, C-Reactive Protein 1.7, NT-Pro-B Natriuret Pep 53.5, Total Protein 7.6, Albumin 3.9, Globulin 3.7 H, Albumin/Globulin Ratio 1.1, Procalcitonin 0.032 Orders (Tests/Meds): ED MEDICATIONS Discontinued Medications Generic Name Dose Route Start Last Admin Trade Name Freq PRN Reason Stop Dose Admin Acetaminophen 1,000 mg 11/23/23 14:08 11/23/23 14:57 Acetaminophen 1,000mg/100ml Vial IV 11/23/23 14:09 1,000 mg ONCE ONE Administration Dalbavancin 1,500 mg/ Dextrose 250 mls @ 500 mls/hr 11/23/23 14:45 11/23/23 15:25 IV 11/23/23 14:46 500 mls/hr ONCE ONE Administration Ketorolac Tromethamine 15 mg 11/23/23 14:08 11/23/23 14:57 Ketorolac 30mg/Ml Vial IV 11/23/23 14:09 15 mg ONCE ONE Administration ORDERS Category Date Time Status BNP [NT Pro Brain Natriuretic Pep.] Stat Lab 11/23/23 14:45 Completed CRP [C-Reactive Protein] Stat Lab 11/23/23 14:45 Completed Complete Blood Count Auto Diff Stat Lab 11/23/23 14:45 Completed Comprehensive Metabolic Panel Routine Lab 11/23/23 14:45 Completed D-Dimer Stat Lab 11/23/23 14:45 Completed ESR [Erythrocyte Sedimentation Rate] Stat Lab 11/23/23 14:45 Completed Procalcitonin Stat Lab 11/23/23 14:45 Completed Prothrombin Time INR Stat Lab 11/23/23 14:45 Completed CA venous doppler LE BI Routine Y 11/23/23 14:08 Completed Medical Decision Narrative: In summary patient is a 67-year-old female who presents to the emergency department for evaluation of edema pain and swelling of the bilateral lower extremities, right greater than left. Patient has past medical history of multiple sclerosis, hyperlipidemia, schizophrenia, schizoaffective disorder morbid obesity hypothyroidism and history of substance abuse. Patient currently is a resident [facility]. Patient is hemodynamically stable upon arrival, afebrile. Physical exam is remarkable for bilateral 3+ pitting edema of the lower extremities, right greater than left with bilateral lower extremity erythema again right greater than left. Patient is tender to palpation posteriorly in the right lower extremity but not in the left. Differential diagnosis includes cellulitis versus DVT versus abscess etc. Initial workup will be conducted with hematologic labs venous Doppler. Initial interventions include Toradol and Tylenol. Initial workup reviewed by me shows that her hematologic labs are nonactionable including a negative D-dimer screen normal white count no shift. Ultrasound shows no thrombus but does show soft tissue cellulitis. Upon repeat evaluation patient had acceptable resolution of symptoms. Given this patient given Dalvance prior to discharge. Given that we have no cardiovascular evaluation will refer to cardiology for review as an outpatient. I was consulted by the CRISTO, and we discussed the complexity of the problems being addressed. I approved the treatment and management plan for this patient?s care in the Emergency Department, thus performing a substantive portion of the medical decision making. Bentley Bejarano MD Critical Care <SILVIA Rincon - Last Filed: 11/23/23 15:51> Critical Care Time Critical Care Time: No
--- NOTE | 2023-11-23 14:08 | CA_ITS ---
FINAL REPORT CLINICAL HISTORY: edema, cellulitis, pain, Obesity, FINDINGS: Color Doppler, duplex Doppler and compression sonography of the bilateral lower extremities was performed. There is no evidence of deep venous thrombosis from the level of the groin to the calf. The deep veins are patent and compressible. There is a small right popliteal cyst. IMPRESSION: No evidence of deep venous thrombosis bilateral lower extremities. Reviewed, Interpreted and Dictated by Gagan Roldan III, MD Transcribed by Kay Harris Authenticated and [facility]
--- NOTE | 2023-11-23 14:17 | PC.NURSE ---
notified CV lab that pt has a dvt r/o ordered
[2023-11-23 14:30] VITALS: BP 137/88; PULSE 65; O2SAT 97
--- NOTE | 2023-11-23 14:40 | PC.NURSE ---
CV lab at bedside
[2023-11-23 14:56] LABS: Basophils # 0.1 K/mm3 (0-0.2); Eosinophils # 0.2 K/mm3 (0.0-0.4); Eosinophils % 3.7 % (0.1-12.0); Hematocrit 36.5 % (37.0-47.0); Hemoglobin 11.9 g/dL (12.2-16.2); Lymphocytes # 1.8 K/mm3 (0.7-4.5); Lymphocytes % 36.9 % (10-50); Mean Corpuscular HGB Conc 32.6 g/dL (31.8-35.4); Mean Corpuscular Hemoglobin 30.1 pg (27.0-31.2); Mean Corpuscular Volume 92.4 fl (81-99); Monocytes # 0.3 K/mm3 (0.1-1.0); Monocytes % 6.4 % (1.7-9.3); Neutrophils # 2.5 K/mm3 (1.8-7.8); Platelet Count 165 K/mm3 (142-424); Red Blood Count 3.95 M/mm3 (4.20-5.40); Red Cell Distribution Width 15.1 % (11.5-17.5); White Blood Count 4.8 K/mm3 (4.8-10.8)
[2023-11-23] MEDS: KETOROLAC 30MG/ML VIAL 15 MG IV (14:57)
[2023-11-23] MEDS: ACETAMINOPHEN 1,000MG/100ML VIAL 1000 MG IV (14:57)
[2023-11-23 15:03] LABS: Chloride 107 mmol/L (98-107); Sodium 142 mmol/L (136-145)
[2023-11-23 15:04] LABS: Potassium 4.2 mmoL/L (3.5-5.1); Prothrombin Time 10.8 seconds (10.1-12.5)
[2023-11-23 15:06] LABS: Alanine Aminotransferase 28 U/L (12-78); Albumin Level 3.9 g/dl (3.5-5.0); Albumin/Globulin Ratio 1.1 (1.1-1.8); Alkaline Phosphatase 89 U/L (38-126); Anion Gap 10.2 mEq/L (5-15); Aspartate Amino Transferase 38 U/L (14-36); Bilirubin,Total 0.2 mg/dl (0.2-1.3); Blood Urea Nitrogen 21 mg/dl (7-17); Carbon Dioxide 29 mmol/L (22.0-30.0); Creatinine Clearance Estimated 76 mL/min (50-200); Estimated Glomerular Filt Rate 49 ml/min (>60); GFR (African American) 60 ML/MIN (>60); Globulin 3.7 g/dL (1.3-3.2); Total Protein,Serum 7.6 g/dl (6.3-8.2)
[2023-11-23 15:07] LABS: Calcium 9.7 mg/dl (8.4-10.2); Glucose 93 mg/dl (74-100)
[2023-11-23 15:12] LABS: C-Reactive Protein 1.7 mg/L (0-4)
[2023-11-23 15:24] LABS: NT Pro Brain Natriuretic Pep. 53.5 pg/mL (0-125)
[2023-11-23] MEDS: DALBAVANCIN HCL 1,500 MG in DEXTROSE 5 % IN WATER 250 ML 500 MG IV (15:25)
[2023-11-23 15:28] LABS: Erythrocyte Sedimentation Rate 50 mm/hr (0-30)
[2023-11-23 15:31] LABS: Procalcitonin 0.032 ng/mL (0.0-2.0)
--- NOTE | 2023-11-23 15:32 | PC.NURSE ---
rounded on pt. expressed no needs at this time.
[2023-11-23 16:06] VITALS: BP 137/88; PULSE 65; RESP 18; TEMP 36.9; O2SAT 98
== END 2023-11-23 16:45 | disposition home or self-care (01) ==
PROVIDERS: Physician Assistant; Emergency Provider Emergency Medicine
DX: L03.115 Cellulitis of right lower limb (principal); L03.116 Cellulitis of left lower limb; I89.0 Lymphedema, not elsewhere classified; F20.9 Schizophrenia, unspecified
CPT/HCPCS: 80053; 83880; 84145; 85025; 85378; 85610; 85651; 86140; 93970; 96374; 96375; 99284; J0131; J0875

== ENCOUNTER 2024-01-21 21:18 | Emergency (ER) | payer MEDICARE, SELFPAY ==
[2024-01-21 21:18] VITALS: BP 139/76; PULSE 65; RESP 18; TEMP 36.8; O2SAT 97; BMI 36.3
[2024-01-21 21:31] VITALS: BP 138/73; PULSE 68; RESP 15; O2SAT 98
--- NOTE | 2024-01-21 21:46 | HMH.EDGENADL ---
Discharge Plan Disposition Patient Disposition: Home, Self-Care Chief Complaint: Extremity Injury, Lower Prescriptions Prescriptions: No Action atorvastatin 40 mg tablet 40 mg PO HS gabapentin 600 mg tablet 1,200 mg PO TID sertraline 100 mg tablet 100 mg PO DAILY baclofen 10 mg tablet 10 mg PO TID divalproex 500 mg Tablet Extended Release 24 Hr 500 mg PO HS levothyroxine 150 mcg tablet 150 mcg PO AM omeprazole 20 mg capsule,delayed release(DR/EC) 20 mg PO BID pramipexole [Mirapex] 1.5 mg Tablet 1.5 mg PO TID lidocaine 4 % Adhesive Patch,Medicated 1 patch TOPICAL DAILY olanzapine 10 mg tablet 10 mg PO BID Patient Comments: TAKE 1 TABLET BY MOUTH ONCE DAILY Referrals Follow up/Referrals: Katherine Suarez MD [Primary Care Provider] - See instructions Activity Restrictions/Add. Instructions Additional Instructions/Restrictions: At this time it was felt you are safe to be discharged home. If new or worsening symptoms please do not hesitate to return the emergency department. Please call and schedule an appointment with Dr. Lozada as soon as you are able to assess your heart function and how it may be contributing to your swelling. Please present tomorrow for formal ultrasound of your leg to rule out blood clot although I did not see one tonight, they should contact you to present for your appointment tomorrow. Please use pression stockings as discussed. Clinical Impressions Clinical Impression: Lymphedema, Leg swelling Discharge ED Provider: Miose Peña General Adult HPI General Chief complaint: Extremity Injury, Lower Stated complaint: Extremity swelling Time Seen by Provider: 01/21/24 21:20 Mode of Arrival: EMS Source of Information: Patient and EMS Limitations: No Limitations Description of Symptoms (Recalled from ER Triage Doc. by RN): Patient reports increased leg swelling that started approximately 3 days ago and has progressively worsened, especially in the right leg. Patient reports increased pain in the right leg. Patient states that she has had leg swelling in the past but that it usually resolves in her sleep. Patient denies shortness of breath, denies chest pain, reports no diuretic medication or CHF diagnosis. History of Present Illness HPI narrative: Patient is a 68-year-old female with past medical history of bilateral lower extremities lymphedema, schizophrenia, secondary hypothyroidism who presents emergency department for evaluation of leg swelling. Patient has had bilateral lower extremity swelling for many years, sometimes her right is worse than her left however both of them usually resolve with rest. She has a history of cirrhosis that she reports and is unsure of the etiology. Over the last 3 to 4 days her legs have swollen as they have before right greater than left which has also happened before. Due to persistent symptoms despite her compression stockings she presents here for continued evaluation. No trauma. No chest pain. Related Data Home Medications Medication Instructions Recorded Confirmed atorvastatin 40 mg tablet 40 mg PO HS 08/01/23 11/09/23 baclofen 10 mg tablet 10 mg PO TID 08/01/23 11/09/23 divalproex 500 mg tablet,extended 500 mg PO HS 08/01/23 11/09/23 release 24 hr gabapentin 600 mg tablet 1,200 mg PO TID 08/01/23 11/09/23 levothyroxine 150 mcg tablet 150 mcg PO AM 08/01/23 11/09/23 omeprazole 20 mg capsule,delayed 20 mg PO BID 08/01/23 11/09/23 release pramipexole 1.5 mg tablet (Mirapex) 1.5 mg PO TID 08/01/23 11/09/23 sertraline 100 mg tablet 100 mg PO DAILY 08/01/23 11/09/23 lidocaine 4 % topical patch 1 patch topical DAILY 11/09/23 11/09/23 olanzapine 10 mg tablet 10 mg PO BID 11/09/23 11/09/23 Allergies Allergy/AdvReac Type Severity Reaction Status Date / Time haloperidol [From Haldol] Allergy Verified 07/31/23 17:39 quetiapine [From Seroquel] Allergy Verified 07/31/23 17:39 [facility] Disclaimer: The information contained in this section may have been updated after the patient was seen, as this information can be updated by other users. Social History (Updated 08/01/23 @ 00:16 by Linda Yarbrough RN) Smoking Status: Current every day smoker alcohol intake: never current occupational status: disabled and other Travel in the last 8 weeks: None ROS Obtained: Yes Systems reviewed as appropriate & no additional complaints except as documented Physical Exam General General appearance: alert and in no apparent distress Head Head exam: atraumatic and normocephalic Eye Eye exam: Present PERRL ENT ENT exam: Present mucous membranes moist Neck Neck exam: Present normal inspection Chest Chest inspection: Present normal inspection and symmetric chest wall rise Respiratory Respiratory exam: Present normal lung sounds bilaterally; Absent respiratory distress Cardiovascular Cardiovascular exam: Present regular rate and normal rhythm Abdominal Exam Abdominal exam: Present soft; Absent tenderness Extremities Exam Extremities exam: Present other (Swollen bilateral lower extremities, the right is slightly worse than the left distal to the knee. Edema is pitting bilaterally. No asymmetric leg swelling proximal to the knee.) Neurological Exam Neurological exam: Present alert Psychiatric Psychiatric exam: Present normal affect Skin Skin exam: Present warm and dry Medical Decision Making Chucho Inquiry Pt receiving controlled substance: No Vital Signs: 01/21/24 21:18 Temperature 98.3 F Temperature Source Oral Pulse Rate [Left Radial] 65 Respiratory Rate 18 Blood Pressure [Right Arm] 139/76 Blood Pressure Mean [Right Arm] 97 Blood Pressure Source [Right Arm] Automatic Cuff Blood Pressure Position [Right Arm] Sitting 02 Sat by Pulse Oximetry 97 Oxygen Delivery Method Room Air Lab Data Lab Results 01/21/24 21:20: WBC 5.5, RBC 3.74 L, Hgb 11.4 L, Hct 34.1 L, MCV 91.3, MCH 30.4, MCHC 33.3, RDW 15.8, Plt Count 224, MPV 8.9, Neut % (Auto) 52.0, Lymph % (Auto) 35.2, [place] % (Auto) 7.8, Eos % (Auto) 3.6, Baso % (Auto) 1.4, Neut # (Auto) 2.8, Lymph # (Auto) 1.9, [place] # (Auto) 0.4, Eos # (Auto) 0.2, Baso # (Auto) 0.1, Sodium 145, Potassium 4.4, Chloride 112 H, Carbon Dioxide 29, Anion Gap 8.4, BUN 32 H, Creatinine 1.30 H, Estimated Creat Clear 65, Estimated GFR 40 L, Est GFR ( Amer) 49 L, Glucose 97, Calcium 9.5, Total Bilirubin 0.3, AST 40 H, ALT 31, Alkaline Phosphatase 75, NT-Pro-B Natriuret Pep 294 H, Total Protein 7.9, Albumin 4.1, Globulin 3.8 H, Albumin/Globulin Ratio 1.1 01/21/24 21:20 01/21/24 21:20 Orders (Tests/Meds): ORDERS Category Date Time Status POCUS Point of Care (ER Only) Stat Exams 01/21/24 21:45 Completed POCUS Point of Care (ER Only) Stat Exams 01/21/24 21:46 Completed BNP [NT Pro Brain Natriuretic Pep.] Stat Lab 01/21/24 21:20 Completed CBC w/Auto Diff [Complete Blood Count Auto Diff] Stat Lab 01/21/24 21:20 Completed CMP [Comprehensive Metabolic Panel] Stat Lab 01/21/24 21:20 Completed Medical Decision Narrative: In summary patient is a 68-year-old female with past medical history described above who presents emergency department for evaluation of bilateral lower extremity swelling. Patient is hemodynamically stable nontoxic-appearing upon arrival, afebrile. Given history of lymphedema I suspect this is an acute worsening of lymphedema given that she has had asymmetric swelling of her legs before and is better with rest this makes sense. However kidney failure, heart failure, worsening liver failure are on the differential as well as DVT for which hematologic labs will be obtained. DVT less likely given the cyclical nature of this. [id number] ultrasound will be performed at bedside for heart and leg. No initial interventions are indicated. Initial workup reviewed by me, hematologic labs are nonactionable, mildly elevated creatinine without TAWANA per rifle criteria, BNP is elevated although only 294. Fohlr-[id number] ultrasound at bedside shows no large pericardial effusion, ventricular function was difficult to assess due to habitus although patient is not in overt decompensated heart failure given her respiratory rate and saturating in the high 90s on room air. [id number] ultrasound also shows no evidence of proximal DVT. Given this the risks were felt to outweigh the benefits as far as anticoagulation empiric initiation was concerned and patient will follow-up in the morning for formal ultrasound. I suspect that her leg swelling is due to her lymphedema and patient is appropriate for outpatient management at this time. Procedure: [id number] ultrasound was performed by Moise Peña. Indication was leg swelling. Ultrasound was cardiac. Subxiphoid view was obtained with limited views which shows no large pericardial effusion, ventricular function cannot be assessed due to technical inadequacy of this ultrasound. Images were saved to permanent archive. Patient tolerated the procedure well. Procedure: [id number] ultrasound was performed with jeanette Peña. Indication was leg swelling. Ultrasound was DVT screening. Serial compression was performed of the common femoral vein of the right lower extremity which shows serial compressibility, no evidence of proximal DVT. Images were saved to apartment archive. Patient tolerated the procedure well. Critical Care Critical Care Time Critical Care Time: No
[2024-01-21 21:54] LABS: Basophils # 0.1 K/mm3 (0-0.2); Basophils % 1.4 % (0.1-2.0); Chloride 112 mmol/L (98-107); Eosinophils # 0.2 K/mm3 (0.0-0.4); Eosinophils % 3.6 % (0.1-12.0); Hematocrit 34.1 % (37.0-47.0); Hemoglobin 11.4 g/dL (12.2-16.2); Lymphocytes # 1.9 K/mm3 (0.7-4.5); Lymphocytes % 35.2 % (10-50); Mean Corpuscular HGB Conc 33.3 g/dL (31.8-35.4); Mean Corpuscular Hemoglobin 30.4 pg (27.0-31.2); Mean Corpuscular Volume 91.3 fl (81-99); Mean Platelet Volume 8.9 fl (7.4-10.4); Monocytes # 0.4 K/mm3 (0.1-1.0); Monocytes % 7.8 % (1.7-9.3); Neutrophils # 2.8 K/mm3 (1.8-7.8); Platelet Count 224 K/mm3 (142-424); Red Blood Count 3.74 M/mm3 (4.20-5.40); Red Cell Distribution Width 15.8 % (11.5-17.5); Sodium 145 mmol/L (136-145); White Blood Count 5.5 K/mm3 (4.8-10.8)
[2024-01-21 21:55] LABS: Potassium 4.4 mmoL/L (3.5-5.1)
[2024-01-21 21:57] LABS: Alanine Aminotransferase 31 U/L (12-78); Albumin Level 4.1 g/dl (3.5-5.0); Albumin/Globulin Ratio 1.1 (1.1-1.8); Alkaline Phosphatase 75 U/L (38-126); Anion Gap 8.4 mEq/L (5-15); Aspartate Amino Transferase 40 U/L (14-36); Bilirubin,Total 0.3 mg/dl (0.2-1.3); Blood Urea Nitrogen 32 mg/dl (7-17); Calcium 9.5 mg/dl (8.4-10.2); Carbon Dioxide 29 mmol/L (22.0-30.0); Creatinine Clearance Estimated 65 mL/min (50-200); Estimated Glomerular Filt Rate 40 ml/min (>60); GFR (African American) 49 ML/MIN (>60); Globulin 3.8 g/dL (1.3-3.2); Glucose 97 mg/dl (74-100); Total Protein,Serum 7.9 g/dl (6.3-8.2)
[2024-01-21 22:00] VITALS: BP 142/73; PULSE 67; RESP 19; O2SAT 95
[2024-01-21 22:07] LABS: NT Pro Brain Natriuretic Pep. 294 pg/mL (0-125)
--- NOTE | 2024-01-21 22:10 | PC.NURSE ---
Addendum entered by VICENTE Spring 01/21/24 22:11: rounded at 2150 Original Note: rounded on patient, patient sleeping
[2024-01-21 22:30] VITALS: BP 153/78; PULSE 68; RESP 21; O2SAT 90
[2024-01-21 23:01] VITALS: BP 118/71; PULSE 74; RESP 15; O2SAT 97
--- NOTE | 2024-01-21 23:04 | PC.NURSE ---
CONTACTED [facility] RE: [facility]. STATED THEY DON'T HAVE A WORKING VEHICLE TO COME GET HER IN. CONTACTED [facility], THEY WILL CONTACT SHANTHI AND SEE WHAT THEY CAN FIND OUT.
[2024-01-21 23:30] VITALS: BP 106/62; PULSE 68; O2SAT 94
[2024-01-22] VITALS: BP 101/62; PULSE 68; O2SAT 94
--- NOTE | 2024-01-22 | CA_ITS ---
FINAL REPORT TECHNIQUE: Multiple transverse and longitudinal images were performed of right the femoral-popliteal deep venous system with augmentation and compression maneuvers. CLINICAL HISTORY: Lymphedema, edema, pain FINDINGS: Right lower extremity duplex ultrasound demonstrates normal flow in the visualized deep venous system. There is no abnormal echogenicity to suggest thrombus. There is normal compression and augmentation. IMPRESSION: No evidence of right DVT. Reviewed, Interpreted and Dictated by Karina Whatley MD Transcribed by Brynn Bull Authenticated and [facility]
--- NOTE | 2024-01-22 01:12 | PC.NURSE ---
Patient resting with eyes closed. Turned off lights and pulled curtain for patient comfort. No acute distress noted. Call light within reach, bed low and locked.
[2024-01-22 01:18] LABS: D-Dimer 0.31 ug/mL (0.0-0.5)
--- NOTE | 2024-01-22 03:34 | PC.NURSE ---
Patient requested bedpan at this time, offered patient PureWick for patient comfort. Patient agreeable. Applied pure wick to patient, attached to suction according to product direction. Patient resting quietly, patient requests removal of monitoring at this time so she can sleep . Call light within reach, bed low and locked. No further needs expressed at this time.
[2024-01-22 04:00] VITALS: BP 137/84; PULSE 77; RESP 16; O2SAT 95
--- NOTE | 2024-01-22 05:12 | PC.NURSE ---
Patient resting with eyes closed. Respirations even and unlabored. No acute distress noted.
--- NOTE | 2024-01-22 05:40 | PC.NURSE ---
Patient called out and reports that she has a mild headache 10/17 and requests something for pain. Orders received. Assisted patient with repositioning. No further needs expressed at this time.
[2024-01-22] MEDS: ACETAMINOPHEN 325MG TAB 650 MG PO (05:45)
--- NOTE | 2024-01-22 06:26 | PC.NURSE ---
Ultrasound at bedside at this time.
--- NOTE | 2024-01-22 07:10 | PC.NURSE ---
breakfast tray set-up for pt
--- NOTE | 2024-01-22 07:52 | PC.NURSE ---
SHANTHI CALLED, SOMEONE WILL PICK PT UP AROUND [id number]
[2024-01-22 08:10] VITALS: BP 132/70; PULSE 74; RESP 18; TEMP 36.8; O2SAT 95
== END 2024-01-22 08:10 | disposition home or self-care (01) ==
PROVIDERS: Emergency Medicine; Emergency Provider Emergency Medicine; PCP Family Medicine
DX: I89.0 Lymphedema, not elsewhere classified (principal); R22.42 Localized swelling, mass and lump, left lower limb; F17.210 Nicotine dependence, cigarettes, uncomplicated; E03.9 Hypothyroidism, unspecified; F20.9 Schizophrenia, unspecified
CPT/HCPCS: 80053; 83880; 85025; 85378; 93971; 99284